=== PATIENT | male | born 1940 | race Caucasian/White ===

== ENCOUNTER 2017-05-19 12:38 | Outpatient (CLI) | payer OTHER | END 2017-05-19 12:39 | disposition home or self-care (01) | LOC: LAB 12:38 | PROVIDERS: ATTEND Family Medicine | DX: R31.9 Hematuria, unspecified (principal) | CPT/HCPCS: 36415; 81001; 85025; 87086; 87186 ==

== ENCOUNTER 2017-05-31 11:43 | Outpatient (CLI) | payer OTHER | END 2017-05-31 11:44 | disposition home or self-care (01) | LOC: NONPT 11:43 | PROVIDERS: ATTEND Family Medicine | DX: N39.0 Urinary tract infection, site not specified (principal) | CPT/HCPCS: 81001; 87086 ==